=== PATIENT | female | born 1995 | race Caucasian/White ===

== ENCOUNTER 2016-09-14 17:07 | Emergency (ER) | payer MEDICAID | END 2016-09-14 20:35 | disposition home or self-care (01) | LOC: D.ER 17:07 | DX: S62.101A Fracture of unspecified carpal bone, right wrist, initial encounter for closed fracture (principal); W22.01XA Walked into wall, initial encounter; Y93.89 Activity, other specified; Y92.019 Unspecified place in single-family (private) house as the place of occurrence of the external cause; F17.200 Nicotine dependence, unspecified, uncomplicated ==

== ENCOUNTER 2016-12-02 13:51 | Emergency (ER) | payer MEDICAID | END 2016-12-02 14:13 | disposition left against medical advice (07) | LOC: D.ER 13:51 | DX: R21 Rash and other nonspecific skin eruption (principal) ==